=== PATIENT | female | born 1980 | race Caucasian/White ===

== ENCOUNTER 2018-01-05 19:11 | Outpatient (CLI) | payer BC ==
--- NOTE | 2018-01-05 21:51 | Ultrasound Report ---
Procedure Date: 01/05/2018 Accession Number: [id number] / [id number] Procedure: US - Pelvic w/Transvaginal CPT Code: FULL RESULT: EXAM: PELVIC ULTRASOUND EXAM DATE: 01/05/2018 08:40 PM. CLINICAL HISTORY: PERSONAL HISTORY OF CERVICAL DYSPLASIA. COMPARISON: None. TECHNIQUE: Realtime transabdominal pelvic scan performed to identify the uterus and adnexa and as an overview of other pelvic structures, followed by transvaginal scan to provide greater detail of the uterus and adnexa, with static image documentation. FINDINGS: Uterus: 6 x 3.4 x 3 cm, volume 31.8 cc. Anteverted position. Normal overall size and echotexture. Masses: None. Endometrium: 3.2 mm. There is a punctate echogenic density along the endometrium suggesting a small calcification. Otherwise unremarkable. Cervix: Unremarkable. Right Ovary: 2.9 x 1.1 x 1.4 cm, volume 2.3 cc. Normal echotexture and blood flow. Left Ovary: 2.0 x 1.1 x 1.2 cm, volume 1.4 cc. Normal echotexture and blood flow. Free Fluid: None. Other: None. IMPRESSION: 1. Small calcification along the endometrium. Otherwise negative pelvic ultrasound. RADIA
== END 2018-01-05 19:12 | disposition home or self-care (01) ==
LOC: DI 19:11
PROVIDERS: ATTEND Obstetrics & Gynecology
DX: N85.8 Other specified noninflammatory disorders of uterus (principal); Z87.410 Personal history of cervical dysplasia
CPT/HCPCS: 76830; 76856

== ENCOUNTER 2018-01-16 07:08 | Outpatient (CLI) | payer BC ==
[2018-01-16 12:12] LABS: CA 125 8.2 U/mL (0.0-35.0)
[2018-01-16 12:19] LABS: FREE T4 (FREE THYROXINE) 0.82 ng/dL (0.58-1.64)
[2018-01-16 12:43] LABS: FOLLICLE STIMULATING HORMONE 14.55 mIU/mL
[2018-01-16 12:44] LABS: LUTEINIZING HORMONE 3.31 mIU/mL
== END 2018-01-16 07:09 | disposition home or self-care (01) ==
LOC: LAB.F 07:08
PROVIDERS: ATTEND Obstetrics & Gynecology
DX: N91.0 Primary amenorrhea (principal)
CPT/HCPCS: 36415; 83001; 83002; 83520; 83615; 84439; 84443; 84481; 86304

== ENCOUNTER 2018-02-10 07:47 | Outpatient (CLI) | payer BC ==
[2018-02-10 13:00] LABS: BASOPHILS % (AUTO) 1.1 %; EOSINOPHILS # (AUTO) 0.1 10^3/uL (0.0-0.7); EOSINOPHILS % (AUTO) 3.9 %; HGB - HEMOGLOBIN 13.6 g/dL (12.0-16.0); LYMPHOCYTES # (AUTO) 1.4 10^3/uL (1.5-3.5); MEAN CORPUSCULAR HEMOGLOBIN 32.4 pg (27.0-31.0); MEAN CORPUSCULAR HGB CONC 34.2 g/dL (32.0-36.0); MEAN CORPUSCULAR VOLUME 94.6 fL (81.0-99.0); MEAN PLATELET VOLUME 8.9 fL (7.9-10.8); MONOCYTES # (AUTO) 0.2 10^3/uL (0.0-1.0); MONOCYTES % (AUTO) 7.7 %; NEUTROPHILS # (AUTO) 1.3 10^3/uL (1.5-6.6); NEUTROPHILS % (AUTO) 41.3 %; PLT - PLATELET COUNT 231 10^3/uL (130-450); RED BLOOD COUNT 4.19 10^6/uL (4.20-5.40); RED CELL DISTRIBUTION WIDTH 12.9 % (12.0-15.0)
[2018-02-10 13:22] LABS: BUN - BLOOD UREA NITROGEN 12 mg/dL (6-20); CALCIUM 9.1 mg/dL (8.5-10.3); CARBON DIOXIDE - CO2 26 mmol/L (21-32); CHLORIDE 103 mmol/L (101-111); CREATININE 0.9 mg/dL (0.4-1.0); GFR - MDRD 71 (>89); GLUCOSE 113 mg/dL (70-100); SODIUM 137 mmol/L (135-145)
[2018-02-10 13:23] LABS: CRP - C-REACTIVE PROTEIN < 1.0 mg/dL (0-1.0)
== END 2018-02-10 07:48 | disposition home or self-care (01) ==
LOC: LAB.F 07:47
PROVIDERS: ATTEND Obstetrics & Gynecology
DX: N91.2 Amenorrhea, unspecified (principal)
CPT/HCPCS: 36415; 80048; 82670; 85025; 85651; 86140

== ENCOUNTER 2018-02-13 12:52 | Outpatient (CLI) | payer BC ==
--- NOTE | 2018-02-14 15:04 | DEXA Report ---
Reason: AMENORRHEA, LLQ ABDOMINAL SWELLING, MASS LUMP Procedure Date: 02/13/2018 Accession Number: [id number] / [id number] Procedure: DEX - Dexa Spine and/or Hip CPT Code: FULL RESULT: EXAM: Dexa Spine and/or Hip DATE: 02/13/2018 1:17 PM CLINICAL HISTORY: AMENORRHEA, LLQ ABDOMINAL SWELLING, MASS LUMP TECHNIQUE: Dual energy x-ray absorptiometry (DXA) was performed on a [employer] System. Regions measured are the AP Spine, femoral neck, and if needed forearm. COMPARISON: None. In accordance with the International Society for Clinical Densitometry (ISCD) guidelines, data from previous exams may be reanalyzed using current recommendations and techniques. This is done to allow a more accurate basis for comparison with the current study. FINDINGS: The data for the lumbar spine is as follows: BMD (g/cm/cm) T-SCORE Z-SCORE REGION L1 1.047 -0.7 -0.3 L2 1.068 -1.1 -0.7 L3 1.148 -0.4 -0.1 L4 1.193 -0.1 0.3 TOTAL 1.120 -0.5 -0.2 NOTE: All evaluable vertebrae are used for classification The data for the hip is as follows: BMD (g/cm/cm) T-SCORE Z-SCORE REGION Neck 0.997 -0.3 0.2 TOTAL 0.946 -0.5 -0.1 NOTE: The femoral neck or total proximal femur, whichever is lowest, is used for classification. IMPRESSION: THE WHO CLASSIFICATION BASED ON THE INTERNATIONAL REFERENCE STANDARD IS NORMAL. THE FRACTURE RISK IS NOT INCREASED. RECOMMENDATION: Patients with diagnosis of osteoporosis or osteopenia should have regular bone mineral density assessment. For those eligible for Medicare, routine testing is allowed once every 2 years. Testing frequency can be increased for patients who have rapidly progressing disease or for those who are receiving medical therapy to restore bone mass. COMMENT: World Health Organization (WHO) definitions for osteoporosis and osteopenia: NORMAL BMD: T-score at -1.0 or higher, fracture risk is low OSTEOPENIA BMD: T-score between -1.0 and -2.5, fracture risk is increased. OSTEOPOROSIS BMD: T-score at -2.5 or lower, fracture risk is high. National Osteoporosis Foundation recommends: 1. Obtain adequate dietary calcium (at least 1200 mg per day) and vitamin D (400-800 international units per day). 2. Participate, as appropriate, in regular weightbearing and muscle-strengthening exercise. 3. Avoid tobacco use and reduce alcohol and caffeine intake. 4. For more detailed information see the website at www.NOF.org.
== END 2018-02-13 12:53 | disposition home or self-care (01) ==
LOC: DI 12:52
PROVIDERS: ATTEND Obstetrics & Gynecology
DX: N91.2 Amenorrhea, unspecified (principal)
CPT/HCPCS: 77080

== ENCOUNTER 2018-02-20 06:25 | Outpatient (CLI) | payer BC ==
[2018-02-20] MEDS ORDERED: IOPAMIDOL-300 50 ML VIAL ONE (06:44)
[2018-02-20] MEDS ORDERED: IOPAMIDOL-300 100 ML VIAL ONE (06:44)
[2018-02-20] MEDS ORDERED: IOPAMIDOL-300 100 ML VIAL IVP ONE (07:59)
[2018-02-20] MEDS ORDERED: IOPAMIDOL-300 50 ML VIAL PO ONE (07:59)
--- NOTE | 2018-02-20 09:20 | CT Report ---
Reason: LEFT LOWER QUADRANT ABDOMINAL SWELLING,MASS AND L Procedure Date: 02/20/2018 Accession Number: [id number] / [id number] Procedure: CT - Abdomen/Pelvis W/ CPT Code: FULL RESULT: EXAM: CT ABDOMEN AND PELVIS EXAM DATE: 02/20/2018 07:56 AM. CLINICAL HISTORY: Left lower quadrant abdominal swelling, mass and lump. Amenorrhea. COMPARISONS: Pelvic w/transvaginal 01/05/2018 7:39 PM. TECHNIQUE: Routine helical CT imaging was performed through the abdomen and pelvis. IV contrast: Isovue 300 100 mL. Enteric contrast: Yes. Reconstructions: Coronal and sagittal. In accordance with CT protocol optimization, one or more of the following dose reduction techniques were utilized for this exam: automated exposure control, adjustment of mA and/or KV based on patient size, or use of iterative reconstructive technique. FINDINGS: Lung Bases: Unremarkable. Liver: Normal. No masses. Gallbladder/Bile Ducts: Unremarkable. Spleen: Normal. Pancreas: Normal. Adrenal Glands: Normal. Kidneys: Normal. No masses or hydronephrosis. Peritoneal Cavity/Bowel: There is diverticulosis sigmoid colon without evidence of diverticulitis. No free fluid, free air or adenopathy. No masses or acute inflammatory process. The appendix is well visualized and normal. Pelvic Organs: Normal. The bladder and visualized pelvic organs are within normal limits. Vasculature: No aneurysms or other significant abnormality. Bones: No significant abnormality. Other: There is a mild asymmetric soft tissue stranding just left of midline inferior to the pubic symphysis within the medial soft tissues of the left labia majora. IMPRESSION: No acute abdominal or pelvic abnormality is identified and no abdominal or pelvic mass is seen. Uterus and ovaries are difficult to evaluate on CT. Questionable left Bartholin's gland cyst. RADIA
== END 2018-02-20 06:26 | disposition home or self-care (01) ==
LOC: DI 06:25
PROVIDERS: ATTEND Obstetrics & Gynecology
DX: R19.04 Left lower quadrant abdominal swelling, mass and lump (principal)
CPT/HCPCS: 74177; Q9967

== ENCOUNTER 2021-04-10 08:00 | Outpatient (CLI) | payer BC | END 2021-04-10 23:59 | disposition home or self-care (01) | LOC: LAB.S 08:00 | PROVIDERS: ATTEND Physician Assistant Medical | DX: J02.9 Acute pharyngitis, unspecified (principal); Z20.822 Contact with and (suspected) exposure to COVID-19 | CPT/HCPCS: 87070 ==

== ENCOUNTER 2021-09-09 05:00 | Emergency (ER) | payer BC ==
[2021-09-09] MEDS ORDERED: SODIUM CHLORIDE 0.9% 1,000 ML IV STA (05:20)
[2021-09-09] MEDS ORDERED: MORPHINE 2 MG/ML CARPUJECT IVP STA (05:20)
[2021-09-09] MEDS ORDERED: ONDANSETRON 4 MG/2 ML VIAL IVP STA (05:20)
--- NOTE | 2021-09-09 05:28 | ED Physician Documentation ---
PD HPI ABD PAIN - Stated complaint Stated Complaint: ABD PX - Chief complaint Chief Complaint: Abd Pain - History obtained from History obtained from: Patient - Additional information Additional information: Patient is a 40-year-old female status post hysterectomy In 2019 presenting for evaluation of right lower abdominal pain starting at 4:00 this morning that woke her up. Pain is sharp and squeezing. It does not radiate elsewhere. She has associated nausea. Nothing makes it better or worse. She was in [place] last week and seen at an urgent care for fever and sore throat. She had a strep test that was done and the rapid strep was negative but the culture was positive for strep G. She has been on amoxicillin. She has not recently had Motrin or Tylenol. She denies cough, congestion, difficulty breathing or chest pain. Denies dysuria, vaginal bleeding or discharge. Review of Systems Constitutional: denies: Fever Nose: denies: Congestion Cardiac: denies: Chest pain / pressure, Palpitations Respiratory: denies: Dyspnea, Cough GI: reports: Abdominal Pain, Nausea. denies: Vomiting, Diarrhea : denies: Dysuria, Hematuria, Discharge Skin: denies: Rash Musculoskeletal: denies: Back pain Neurologic: denies: Headache PD PAST MEDICAL HISTORY - Past Medical History Past Medical History: No Cardiovascular: None Respiratory: None Neuro: None Endocrine/Autoimmune: None GI: None NEGATIVE RESTORER: None : None HEENT: None Psych: None Musculoskeletal: None Derm: None - Past Surgical History Past Surgical History: Yes /NEGATIVE RESTORER: Tubal ligation, Hysterectomy - Present Medications Home Medications: Ambulatory Orders Medication Instructions Recorded Confirmed Dextroamphetamine/Amphetamine 30 mg PO DAILY 09/09/21 09/09/21 [Adderall 20 mg Tablet] - Allergies Allergies/Adverse Reactions: Allergies Allergy/AdvReac Type Severity Reaction Status Date / Time No Known Drug Allergies Allergy Verified 09/09/21 05:11 - Social History Does the pt smoke?: No Smoking Status: Never smoker Does the pt drink ETOH?: No Does the pt have substance abuse?: No - Immunizations Immunizations are current?: Yes - POLST Patient has POLST: No PD ED PE NORMAL - General General: Alert and oriented X 3, No acute distress, Well developed/nourished - HEENT HEENT: Atraumatic, Moist mucous membranes - Neck Neck: Supple, no meningeal sign - Cardiac Cardiac: RRR, No murmur, Strong equal pulses - Respiratory Respiratory: No respiratory distress, Clear bilaterally - Abdomen Abdomen: Normal bowel sounds, Soft, Non distended, Other (Right lower quadrant tenderness to palpation) - Derm Derm: Warm and dry - Extremities Extremities: No deformity, No edema - Neuro Neuro: Alert and oriented X 3, No motor deficit, Normal speech - Psych Psych: Normal mood, Normal affect Results - Vitals Vitals: Vital Signs - 24 hr 09/09/21 09/09/21 09/09/21 05:09 05:21 05:47 Temperature 36.1 C L Heart Rate 75 74 Respiratory 16 17 17 Rate Blood Pressure 119/83 H O2 Saturation 100 98 09/09/21 09/09/21 06:19 06:52 Temperature 36.4 C L Heart Rate 68 65 Respiratory 16 16 Rate Blood Pressure 134/91 H 108/88 H O2 Saturation 99 98 Oxygen O2 Source Room air - Labs Labs: Laboratory Tests 09/09/21 09/09/21 09/09/21 05:29 05:29 06:15 WBC 3.3 L RBC 3.97 L Hgb 12.9 Hct 38.3 MCV 96.5 MCH 32.5 H MCHC 33.7 RDW 11.9 L Plt Count 186 MPV 9.4 Neut # (Auto) 1.6 Lymph # (Auto) 1.2 L [place] # (Auto) 0.3 Eos # (Auto) 0.2 Baso # (Auto) 0.0 Absolute Nucleated RBC 0.00 Nucleated RBC % 0.0 Sodium 140 Potassium 3.8 Chloride 104 Carbon Dioxide 25 Anion Gap 11.0 BUN 7 Creatinine 0.7 Estimated GFR (MDRD) 94 Glucose 98 Calcium 8.9 Total Bilirubin 0.4 AST 25 ALT 29 Alkaline Phosphatase 37 L Total Protein 7.1 Albumin 4.2 Globulin 2.9 Albumin/Globulin Ratio 1.4 Lipase 42 Urine Color YELLOW Urine Clarity CLEAR Urine pH 6.5 Ur Specific [place] 1.010 Urine Protein NEGATIVE Urine Glucose (UA) NEGATIVE Urine Ketones NEGATIVE Urine Occult Blood NEGATIVE Urine Nitrite NEGATIVE Urine Bilirubin NEGATIVE Urine Urobilinogen 0.2 (NORMAL) Ur Leukocyte Esterase NEGATIVE Ur Microscopic Review NOT INDICATED Urine Culture Comments NOT INDICATED PD MEDICAL DECISION MAKING - ED course Complexity details: reviewed results, re-evaluated patient, d/w patient ED course: Patient evaluated for sudden right-sided abdominal pain. On exam his right lower quadrant tenderness. Labs reviewed. CT obtained with questionable collapsing right adnexal cyst. This could be the source of her pain. On repeat exam she has no reproducible tenderness and her pain is gone. Do not think her exam suggest ovarian torsion or TOA. Patient has had a hysterectomy. Discussed continuing with supportive care and need for close follow-up with her primary care doctor. She is advised on strict return precautions should the pain intensify again Or she develop any other new symptoms. 0646 - Patient feeling much better. I reviewed CT results with her including findings of a collapsing right adnexal cyst. Her pain has resolved. I repeated abdominal exam and was unable to elicit any tenderness. She has no pain on deep palpation in the right lower quadrant and into the pelvis. Patient is very petite and I feel no masses or fullness suggestive of ovarian torsion and again patient's pain has resolved. Departure - Departure Disposition: 01 Home, Self Care Clinical Impression: Right lower quadrant pain Ovarian cyst Qualifiers: Laterality: right Qualified Code(s): N83.201 - Unspecified ovarian cyst, right side Condition: Stable Instructions: ED Abdominal Pain Female Non-Specific Abdominal Pain, ED Cyst Ovarian Comments: Bernadette you were evaluated for right-sided abdominal pain. Your labs were overall reassuring and appeared similar to your labs from previous visits. You had a CT scan done which showed a normal-appearing appendix. At the radiologist also believes he sees a small 1 cm cyst on your right ovary. This could be the reason you had pain this morning but it appears your pain has resolved. If needed please use Motrin or Tylenol or heating pad to this area for any discomfort. If the pain is severe, you develop vomiting, dizziness or have any other concerns please return to the emergency department. Discharge Date/Time: 09/09/21 07:01
[2021-09-09] MEDS ORDERED: IOVERSOL 320 100 ML VIAL IVP ONE ×2 (05:33→06:21)
[2021-09-09 05:38] LABS: BASOPHILS % (AUTO) 0.9 %; EOSINOPHILS # (AUTO) 0.2 10^3/uL (0.0-0.7); EOSINOPHILS % (AUTO) 4.6 %; HCT - HEMATOCRIT 38.3 % (37.0-47.0); HGB - HEMOGLOBIN 12.9 g/dL (12.0-16.0); LYMPHOCYTES # (AUTO) 1.2 10^3/uL (1.5-3.5); LYMPHOCYTES % (AUTO) 37.5 %; MEAN CORPUSCULAR HEMOGLOBIN 32.5 pg (27.0-31.0); MEAN CORPUSCULAR HGB CONC 33.7 g/dL (32.0-36.0); MEAN CORPUSCULAR VOLUME 96.5 fL (81.0-99.0); MEAN PLATELET VOLUME 9.4 fL (7.9-10.8); MONOCYTES # (AUTO) 0.3 10^3/uL (0.0-1.0); MONOCYTES % (AUTO) 8.8 %; NEUTROPHILS # (AUTO) 1.6 10^3/uL (1.5-6.6); NEUTROPHILS % (AUTO) 47.9 %; PLT - PLATELET COUNT 186 10^3/uL (130-450); RED BLOOD COUNT 3.97 10^6/uL (4.20-5.40); RED CELL DISTRIBUTION WIDTH 11.9 % (12.0-15.0); WHITE BLOOD COUNT 3.3 x10^3/uL (4.8-10.8)
[2021-09-09 05:51] LABS: ALBUMIN 4.2 g/dL (3.2-5.5); ALBUMIN/GLOBULIN RATIO 1.4 (1.0-2.2); BILIRUBIN,TOTAL 0.4 mg/dL (0.2-1.0); CALCIUM 8.9 mg/dL (8.5-10.3); CREATININE 0.7 mg/dL (0.4-1.0); POTASSIUM 3.8 mmol/L (3.5-5.0); TOTAL PROTEIN 7.1 g/dL (6.7-8.2)
[2021-09-09 06:24] LABS: BILIRUBIN,URINE NEGATIVE (NEGATIVE); CLARITY,URINE CLEAR (CLEAR); GLUCOSE, URINE (UA) NEGATIVE (NEGATIVE); KETONES,URINE (UA) NEGATIVE (NEGATIVE); LEUKOCYTE ESTERASE, URINE NEGATIVE (NEGATIVE); NITRITE,URINE NEGATIVE (NEGATIVE); OCCULT BLOOD,URINE NEGATIVE (NEGATIVE); PH,URINE 6.5 PH (5.0-7.5); PROTEIN,URINE NEGATIVE (NEGATIVE); UROBILINOGEN,URINE 0.2 (NORMAL) E.U./dL (NORMAL)
[2021-09-09 06:54] VITALS: BP 108/88
--- NOTE | 2021-09-09 08:07 | CT Report ---
PROCEDURE: Abdomen/Pelvis W INDICATIONS: RLQ pain CONTRAST: IV CONTRAST: Optiray 320 ml: 100 PO CONTRAST: *NO PO CONTRAST TECHNIQUE: After the administration of IV contrast, 5 mm thick sections acquired from the diaphragms to the symp hysis. 5 mm thick coronal and sagittal reformats were acquired. For radiation dose reduction, the f ollowing was used: automated exposure control, adjustment of mA and/or kV according to patient size. COMPARISON: CT abdomen and pelvis with contrast, 10/25/2019 and 02/20/2018. FINDINGS: Image quality: Excellent. ABDOMEN: Lung bases: Lung bases are clear. Heart size is normal. Solid organs: Liver and spleen are normal in size and enhancement. Gallbladder is normal. Biliary system is non dilated. Pancreas enhances normally. No adrenal nodules. Kidneys demonstrate normal size and enhancement, without hydronephrosis. Peritoneum and bowel: Bowel loops demonstrate normal wall thickness and caliber. This is not definit ively seen. There is a blind tubular structure in mid abdomen (series 3 image [id number]), presumably the appendix appears normal. Diverticulosis without acute diverticulitis. No free fluid or air. Nodes and vessels: No retroperitoneal or mesenteric adenopathy by size criteria. Aorta and inferior vena cava are normal in size. Miscellaneous: No ventral hernias. PELVIS: Genitourinary: Uterus is not visualized. A 1 cm corpus luteal cyst is noted in the right ovary. Ther e is no free fluid in the cul-de-sac. Bladder wall thickness is normal. Miscellaneous: No inguinal hernias or adenopathy. Bones: No suspicious bony lesions. No vertebral body compression fractures. IMPRESSION: 1. No acute abnormalities in abdomen or pelvis. 2. Appendix is not definitively identified. A candidate for appendix appears normal. 3. A small 1 cm corpus luteal cyst in the right ovary. No free fluid in the cul-de-sac. No significant discrepancy with the preliminary interpretation. Reviewed by: Stanislaw Brooks MD on 09/09/2021 8:06 AM PDT Approved by: Stanislaw Brooks MD on 09/09/2021 8:06 AM PDT Station ID: [id number]
== END 2021-09-09 07:01 | disposition home or self-care (01) ==
LOC: ED 05:00
DX: N83.11 Corpus luteum cyst of right ovary (principal)
CPT/HCPCS: 36415; 74177; 80053; 81003; 83690; 85025; 96374; 96375; 99282; 99284; Q9967; 81001; 87086